=== PATIENT | male | born 1995 | race Caucasian/White ===

== ENCOUNTER 2019-04-30 16:38 | Observation (INO) ==
[2019-04-30 17:16] LABS: Hematocrit (blood only) 44.5 % (42-52); Hemoglobin 15.9 g/dL (14.0-18.0); Mean Corpuscular Hemoglobin 30.6 pg (25-34); Mean Corpuscular Hgb Conc 35.7 g/dL (32-36); Mean Corpuscular Volume 85.7 fL (80-100); Mean Platelet Volume 11.2 fL (7.4-10.4); Platelet Count 180 K/uL (130-400); RDW Coefficient of Variation 12.7 % (11.5-14.5); RDW Standard Deviation 39.8 fL (36.4-46.3); Red Blood Count 5.19 M/uL (4.7-6.1); White Blood Count 16.95 K/uL (4.8-10.8)
[2019-04-30] MEDS ORDERED: ONDANSETRON INJ 2 MG/ML 2 ML VIAL IV STA (17:20)
[2019-04-30] MEDS: fentaNYL citrate 100 MCG/2 ML VIAL IV PRN ×3 (17:29→21:00)
[2019-04-30] MEDS: SODIUM CHLORIDE 0.9% 1000ML 1,000 ML IV SCH (17:29)
[2019-04-30 17:32] LABS: BUN Creatinine Ratio 13.9 (10-20); Calcium 9.2 mg/dl (8.5-10.1); Creatinine Clr Calc Pharmacy 134.1 ml/min; Est GFR (African American) 130.1; Est GFR (Non-African American) 112.2; Potassium 3.7 mmol/L (3.5-5.1)
[2019-04-30 19:13] LABS: POC Urine Bilirubin Negative (Negative); POC Urine Blood Negative (Negative); POC Urine Glucose Normal (Normal); POC Urine Leukocytes Trace (Negative); POC Urine Nitrite Negative (Negative); POC Urine Protein Trace (Negative); POC Urine Urobilinogen Normal (Normal)
[2019-04-30 19:21] LABS: Appearance Urine Clear (Clear); Bacteria Urine Automated Negative (Negative); Bilirubin Urine Negative (Negative); Blood Urine Negative (Negative); Color Urine Yellow; Glucose Urine UA Negative (Negative); Leukocyte Esterase Urine Trace (Negative); Nitrite Urine Negative (Negative); Protein Urine Negative (Negative); RBC Urine Automated 0-4 /hpf (0-4); Specific Gravity Urine 1.014 (1.000-1.030); Urobilinogen Urine Negative (Negative)
[2019-04-30 19:23] LABS: Ketones Urine 3+ (Negative)
[2019-04-30] MEDS ORDERED: IOVERSOL 100ml IV PRN (19:56)
--- NOTE | 2019-04-30 20:09 | CT Scan Report ---
CT abd pelvis oral and IV con CLINICAL HISTORY: 24 years-old Male presenting with rlq pain, n/v. TECHNIQUE: Multidetector CT of the abdomen and pelvis was performed after the administration of oral and intravenous contrast. IV contrast: 94 mL of Optiray 320. One or more dose lowering techniques wer e used consistent with the principles of ALARA (as low as reasonably achievable), including automatic exposure control, mA or kV adjustment to individual patient size, and/or use of iterative reconstruc tion. COMPARISON: None. CT DOSE (mGy.cm): The estimated cumulative dose is 332.91 mGy.cm. FINDINGS: [employer] topogram: Unremarkable. Lung bases: Normal heart size. No pericardial or pleural effusion. No focal infiltrate or nodule at t he lung bases. Liver: Normal morphology. No liver lesion. Patent hepatic vasculature. Biliary: No intrahepatic or extrahepatic biliary ductal dilatation. Normal gallbladder. Pancreas: Normal. Spleen: Normal. Adrenal glands: Normal. Kidneys and ureters: Normal. No hydronephrosis. Bladder: Incompletely evaluated secondary to underdistention. Pelvic organs: Prostate and seminal vesicles normal. Bowel: Hyperenhancing dilated and not opacified appendix with exuberant surrounding periappendiceal f at infiltration and fluid in the right lower quadrant. No adjacent abscess. No gross mucosal disconti nuity. No bowel obstruction. Peritoneal cavity: No free fluid or intraperitoneal gas. Lymph nodes: No enlarged lymph nodes in the abdomen or pelvis. Vasculature: Aorta and IVC patent and normal in caliber. Abdominal wall: Normal. Musculoskeletal: Normal. IMPRESSION: 1. Acute appendicitis with exuberant regional inflammatory change. No abscess. No gross evidence of mucosal necrosis. Surgical consultation is necessary. The report will be called/faxed according to standard departmental protocol for a critical finding. Electronically signed by: Derrick Blanton M.D. 04/30/2019 8:07 PM
--- NOTE | 2019-04-30 21:15 | History & Physical Report ---
Date of Service April 30, 2019 Assessment & Plan (1) Acute appendicitis: This patient's history, physical findings, laboratories and CT findings are consistent with appendicitis. I reviewed the images as well as the report. I have recommended a laparoscopic appendectomy. I explained the possible need to convert to an open procedure. I explained the possible complications associated with those procedures. The patient wishes to go ahead with surgery and has signed a consent form. Present on Admission?: Yes History of Present Illness Chief Complaint: Right lower quadrant abdominal pain Primary Care Provider: NO PCP Is a 24-year-old male who presented to the emergency room with a complaint of pain that is now in the right lower quadrant. When he went to bed last night he was well. He awoke at 4 AM this morning with pain that was more like a dull ache and a cramp centered in the upper abdomen but as the day progressed it migrated to the right lower quadrant where it is presently located. It is exacerbated by motion. It went was associated with nausea and he had one episode of vomiting. His bowels have been moving without diarrhea or constipation. He denies melena and hematochezia. He is never had pain like this before. He had what he described as sweats but he did not take his temperature. He denies dysuria and hematuria Allergies Allergy/AdvReac Type Severity Reaction Status Date / Time No Known Allergies Allergy Unverified 04/30/19 17:08 Home Medications Home Medications Medication Instructions Recorded Confirmed Type No Known Home Medications 04/30/19 04/30/19 History Past Med/Surg History Medical History No pertinent past medical history Surgical History History of cranial surgery Craniosynostosis [place] teeth extracted Family History Other No pertinent family history in first degree relatives Social History Preferred Language: Martiniquais Feels Safe at Home: Yes Smoking Status: Never smoker Review of Systems Review of Systems: All systems reviewed & are unremarkable except as noted in HPI & below Physical Exam Constitutional: no acute distress Neck: trachea midline Respiratory: normal respiratory effort, lungs clear to auscultation Cardiovascular: Rate/Rhythm: regular rate and regular rhythm Gastrointestinal (Abdomen): Inspection/Auscultation: normal bowel sounds; abdomen not distended Percussion/Palpation: + abdomen tender (Right lower quadrant with some referred tenderness to the right lower quadrant from the left lower quadrant) and abdomen soft; no abdominal mass Skin: no rashes, warm and dry Lymphatic: no cervical lymphadenopathy Results & Data Vital Signs (Past 12 Hours) Vital Signs Temp Pulse Resp BP Pulse Ox 04/30/19 18:30 76 16 99 04/30/19 18:00 75 13 98 04/30/19 17:36 108 H 19 98 04/30/19 17:33 102 H 18 154/88 H 97 04/30/19 16:51 36.7 C 92 H 20 142/90 H 96 Laboratory Results 04/30/19 04/30/19 04/30/19 Range/Units Unknown Unknown 17:02 WBC (4.8-10.8) K/uL RBC (4.7-6.1) M/uL Hgb (14.0-18.0) g/dL Hct (42-52) % MCV (80-100) fL MCH (25-34) pg MCHC (32-36) g/dL RDW Std Deviation (36.4-46.3) fL RDW Coeff of Abiodun (11.5-14.5) % Plt Count (130-400) K/uL MPV (7.4-10.4) fL Sodium 139 (136-145) mmol/L Potassium 3.7 (3.5-5.1) mmol/L Chloride 103 (98-107) mmol/L Carbon Dioxide 25 (21-32) mmol/L Anion Gap 11.0 (3-11) BUN 13 (7-18) mg/dl Creatinine 0.94 (0.6-1.4) mg/dl Est Cr Clr Drug Dosing 134.1 ml/min Est GFR ( Amer) 130.1 Est GFR (Non-Af Amer) 112.2 BUN/Creatinine Ratio 13.9 (10-20) Glucose 89 (70-99) mg/dl Calcium 9.2 (8.5-10.1) mg/dl Urine Color Yellow Urine Appearance Clear (Clear) Urine pH 6.0 (4.5-7.5) POC Urine pH Pending Ur Specific [place] 1.014 (1.000-1.030) Urine Protein Negative (Negative) POC Urine Protein Trace H (Negative) Urine Glucose (UA) Negative (Negative) POC Ur Glucose (UA) Normal (Normal) Urine Ketones 3+ H (Negative) POC Urine Ketones 2+ (Moderate) H (Negative) Urine Blood Negative (Negative) POC Urine Blood Negative (Negative) Urine Nitrite Negative (Negative) POC Urine Nitrite Negative (Negative) Urine Bilirubin Negative (Negative) POC Urine Bilirubin Negative (Negative) Urine Urobilinogen Negative (Negative) POC Urine Urobilinogen Normal (Normal) Ur Leukocyte Esterase Trace H (Negative) POC U Leukocyte Esteras Trace H (Negative) Urine WBC (Auto) 10-30 H (0-5) /hpf Urine RBC (Auto) 0-4 (0-4) /hpf U Hyaline Cast (Auto) 1-5 (0-5) /lpf U Epithel Cells (Auto) 5-10 H (0-5) /lpf Urine Bacteria (Auto) Negative (Negative) 04/30/19 Range/Units 17:02 WBC 16.95 H (4.8-10.8) K/uL RBC 5.19 (4.7-6.1) M/uL Hgb 15.9 (14.0-18.0) g/dL Hct 44.5 (42-52) % MCV 85.7 (80-100) fL MCH 30.6 (25-34) pg MCHC 35.7 (32-36) g/dL RDW Std Deviation 39.8 (36.4-46.3) fL RDW Coeff of Abiodun 12.7 (11.5-14.5) % Plt Count 180 (130-400) K/uL MPV 11.2 H (7.4-10.4) fL Sodium (136-145) mmol/L Potassium (3.5-5.1) mmol/L Chloride (98-107) mmol/L Carbon Dioxide (21-32) mmol/L Anion Gap (3-11) BUN (7-18) mg/dl Creatinine (0.6-1.4) mg/dl Est Cr Clr Drug Dosing ml/min Est GFR ( Amer) Est GFR (Non-Af Amer) BUN/Creatinine Ratio (10-20) Glucose (70-99) mg/dl Calcium (8.5-10.1) mg/dl Urine Color Urine Appearance (Clear) Urine pH (4.5-7.5) POC Urine pH Ur Specific [place] (1.000-1.030) Urine Protein (Negative) POC Urine Protein (Negative) Urine Glucose (UA) (Negative) POC Ur Glucose (UA) (Normal) Urine Ketones (Negative) POC Urine Ketones (Negative) Urine Blood (Negative) POC Urine Blood (Negative) Urine Nitrite (Negative) POC Urine Nitrite (Negative) Urine Bilirubin (Negative) POC Urine Bilirubin (Negative) Urine Urobilinogen (Negative) POC Urine Urobilinogen (Normal) Ur Leukocyte Esterase (Negative) POC U Leukocyte Esteras (Negative) Urine WBC (Auto) (0-5) /hpf Urine RBC (Auto) (0-4) /hpf U Hyaline Cast (Auto) (0-5) /lpf U Epithel Cells (Auto) (0-5) /lpf Urine Bacteria (Auto) (Negative) Diagnostic Findings CT abd pelvis oral and IV con CLINICAL HISTORY: 24 years-old Male presenting with rlq pain, n/v. TECHNIQUE: Multidetector CT of the abdomen and pelvis was performed after the administration of oral and intravenous contrast. IV contrast: 94 mL of Optiray 320. One or more dose lowering techniques were used consistent with the principles of ALARA (as low as reasonably achievable), including automatic exposure control, mA or kV adjustment to individual patient size, and/or use of iterative reconstruction. COMPARISON: None. CT DOSE (mGy.cm): The estimated cumulative dose is 332.91 mGy.cm. FINDINGS: [employer] topogram: Unremarkable. Lung bases: Normal heart size. No pericardial or pleural effusion. No focal infiltrate or nodule at the lung bases. Liver: Normal morphology. No liver lesion. Patent hepatic vasculature. Biliary: No intrahepatic or extrahepatic biliary ductal dilatation. Normal gallbladder. Pancreas: Normal. Spleen: Normal. Adrenal glands: Normal. Kidneys and ureters: Normal. No hydronephrosis. Bladder: Incompletely evaluated secondary to underdistention. Pelvic organs: Prostate and seminal vesicles normal. Bowel: Hyperenhancing dilated and not opacified appendix with exuberant surrounding periappendiceal fat infiltration and fluid in the right lower quadrant. No adjacent abscess. No gross mucosal discontinuity. No bowel obstruction. Peritoneal cavity: No free fluid or intraperitoneal gas. Lymph nodes: No enlarged lymph nodes in the abdomen or pelvis. Vasculature: Aorta and IVC patent and normal in caliber. Abdominal wall: Normal. Musculoskeletal: Normal. IMPRESSION: 1. Acute appendicitis with exuberant regional inflammatory change. No abscess. No gross evidence of mucosal necrosis. Surgical consultation is necessary. The report will be called/faxed according to standard departmental protocol for a critical finding. (1) Acute appendicitis Acute appendicitis type: unspecified acute appendicitis type Qualified Code(s): K35.80 - Unspecified acute appendicitis
[2019-04-30] MEDS ORDERED: CEFAZOLIN 250 MG/ML 1 GM VIAL ONE (21:48)
[2019-04-30] MEDS ORDERED: BUPIVACAINE 0.5 % 5 MG/1 ML MPF 30ML VIAL ONE (21:48)
[2019-04-30] MEDS ORDERED: MIDAZOLAM HCL 1 MG/ML 2ML VIAL ONE (21:48)
[2019-04-30] MEDS ORDERED: fentaNYL citrate 100 MCG/2 ML VIAL ONE ×2 (21:48→23:07)
[2019-04-30] MEDS ORDERED: HEPARIN (PORCINE) 1000 UNIT/ML 10 ML (CATH LAB USE ONLY) ONE (21:48)
--- NOTE | 2019-04-30 21:54 | Anesthesiology Consultation ---
Date of Service April 30, 2019 Assessment & Plan (1) Encounter for pre-operative examination: Chart Review Chart Review: Acceptable Risk for Surgery History Surgery Operation Date: 04/30/19 22:15 Proposed Procedures p Laparoscopic Appendectomy - Pelon Schmitt MD Height/Weight Height: 6 ft 1 in Weight: 78.9 kg Allergies Allergy/AdvReac Type Severity Reaction Status Date / Time No Known Allergies Allergy Unverified 04/30/19 17:08 Medications Home Medications Medication Instructions Recorded Confirmed Last Taken No Known Home Medications 04/30/19 04/30/19 Unknown Active Medications Generic Name Dose Route Start Last Admin Trade Name Freq PRN Reason Stop Dose Admin Fentanyl Citrate 50 mcg 04/30/19 17:20 04/30/19 21:00 Fentanyl Citrate IV 05/14/19 17:19 50 mcg Q15M PRN Administration Pain Sodium Chloride 1,000 mls @ 125 mls/hr 04/30/19 17:30 04/30/19 17:29 Nss 1000ml IV 05/30/19 17:29 125 mls/hr .Q8H RAUDEL Administration Ioversol 94 ml 04/30/19 19:56 04/30/19 19:56 Optiray 320 100ml IV 05/04/19 19:55 94 ml ONCE PRN Administration Interaction Checking Past Medical History Medical History No pertinent past medical history Past Family History Family History Other No pertinent family history in first degree relatives Past Surgical History Surgical History History of cranial surgery Craniosynostosis [place] teeth extracted Social History Smoking Status: Never smoker Physical Exam Vital Signs Last Vital Signs Temp 36.7 C 04/30/19 16:51 Pulse 76 04/30/19 18:30 Resp 16 04/30/19 18:30 BP 154/88 H 04/30/19 17:33 Pulse Ox 99 04/30/19 18:30 Testing Laboratory Results 04/30/19 17:02 04/30/19 17:02 Urine Color Yellow 04/30/19 Unknown Urine Appearance Clear (Clear) 04/30/19 Unknown Urine pH 6.0 (4.5-7.5) 04/30/19 Unknown Ur Specific [place] 1.014 (1.000-1.030) 04/30/19 Unknown Urine Protein Negative (Negative) 04/30/19 Unknown Urine Glucose (UA) Negative (Negative) 04/30/19 Unknown Urine Ketones 3+ (Negative) H 04/30/19 Unknown Urine Nitrite Negative (Negative) 04/30/19 Unknown Ur Leukocyte Esterase Trace (Negative) H 04/30/19 Unknown Urine WBC (Auto) 10-30 /hpf (0-5) H 04/30/19 Unknown Urine RBC (Auto) 0-4 /hpf (0-4) 04/30/19 Unknown U Hyaline Cast (Auto) 1-5 /lpf (0-5) 04/30/19 Unknown U Epithel Cells (Auto) 5-10 /lpf (0-5) H 04/30/19 Unknown Urine Bacteria (Auto) Negative (Negative) 04/30/19 Unknown
[2019-04-30] MEDS ORDERED: KETOROLAC 30 MG/ML VIAL IV PRN (22:20)
[2019-04-30] MEDS ORDERED: ATROPINE SULFATE 0.1 MG/ML 10ML SYR IV PRN (22:20)
[2019-04-30] MEDS ORDERED: ONDANSETRON INJ 2 MG/ML 2 ML VIAL IV PRN (22:20)
[2019-04-30] MEDS ORDERED: HYDROmorphone INJ 1 MG/ML SYRINGE IV PRN (22:20)
[2019-04-30] MEDS ORDERED: PROPOFOL IV EMULSION 10 MG/ML 20 ML VIAL IV ONE (22:53)
[2019-04-30] MEDS ORDERED: LIDOCAINE HCL 2% 2 ML VIAL/AMP(20MG/ML) INFIL ONE (22:53)
[2019-04-30] MEDS ORDERED: ONDANSETRON INJ 2 MG/ML 2 ML VIAL ONE (22:55)
[2019-04-30] MEDS ORDERED: METOCLOPRAMIDE HCL INJ 5 MG/ML 2 ML VIAL ONE (22:55)
[2019-04-30] MEDS ORDERED: SUCCINYLCHOLINE 100MG/5ML SYR ONE (22:55)
[2019-04-30] MEDS ORDERED: ROCURONIUM BROMIDE 10 MG/ML 5 ML VIAL ONE (22:55)
[2019-04-30] MEDS ORDERED: NEOSTIGMINE METHYLSULFATE 5 MG/5 ML SYR ONE (23:04)
[2019-04-30] MEDS ORDERED: GLYCOPYRROLATE 0.2 MG/ML VIAL ONE (23:04)
--- NOTE | 2019-04-30 23:40 | Post Operative Brief Note ---
Immediate Post Op Note v1 Date of Surgery April 30, 2019 Pre & Post Diagnosis Operation Date: 04/30/19 22:15 Pre-Op Diagnosis: acute appendicitis Post-Op Diagnosis: acute appendicitis Procedure Operation Date: 04/30/19 22:15 Actual Procedures p Laparoscopic Appendectomy(Not Applicable) - Pelon Schmitt MD Surgeon Pelon Schmitt MD Egg Smeller None Estimated Blood Loss 5 Findings Consistent with Post-Op Diagnosis Specimens Appendix Drains Rojo Catheter (16 latvian 10ml balloon; patent, clean, dry, intact) Complications none
[2019-04-30] MEDS ORDERED: LABETALOL HCL IV 5 MG/ML 20ML IV PRN (23:41)
[2019-04-30] MEDS ORDERED: MEPERIDINE HCL 25 MG/ML CARP IV PRN (23:42)
[2019-04-30] MEDS ORDERED: MEPERIDINE HCL 25 MG/ML CARP ONE (23:54)
--- NOTE | 2019-04-30 23:55 | Emergency Department Note ---
Entered by Faviola Dutta acting as a scribe for Therese Jerome DO History of Present Illness General Chief complaint: Flank Pain Stated complaint: FLANK PAIN Time Seen by Provider: 04/30/19 17:05 Source: patient History of Present Illness Provider complaint: Abdominal Pain Onset (ago): day(s) 1 Location: abdomen (Upper) Radiation: abdomen (Lower) Maximum Pain Intensity: 7 Exacerbated By: + movement Associated symptoms: + denies other symptoms (Reflux), + fever/chills, + nausea/vomiting and + other (Hot flashes, no bowel movements today) The patient is a 24 year old male who presents to the Emergency Room with complaints of abdominal pain that began early this morning. The patient states the pain began in his upper abdomen and then moved to his lower abdomen and is exacerbated by standing up straight or laying flat. He states the pain is worse in the right lower abdomen. No prior history of similar pain. The patient reports experiencing hot flashes and possible fever/chills. Additionally, the patient states he had normal bowel movements yesterday but has not had a bowel movement today. Patient states he was nauseated muscle today and vomited once. Decreased appetite. The patient denies any reflux or recent travel. No recent dietary changes. No recent trauma. Patient denies any prior abdominal surgery. Home Medications Home Medications Medication Instructions Recorded Confirmed Type No Known Home Medications 04/30/19 04/30/19 History Allergies Allergy/AdvReac Type Severity Reaction Status Date / Time No Known Allergies Allergy Unverified 04/30/19 17:08 Past Med/Surg History Medical History No pertinent past medical history Surgical History History of cranial surgery Craniosynostosis Anderson teeth extracted Family History Other No pertinent family history in first degree relatives Social History Preferred Language: Iraqi Feels Safe at Home: Yes Smoking Status: Never smoker Review of Systems See HPI for pertinent positives & negatives. and A total of 10 systems reviewed and were otherwise negative Physical Exam Vital Signs Vital Signs - 24 hr 04/30/19 16:51 04/30/19 17:33 04/30/19 17:36 Temperature 36.7 C Temperature Source Oral Sepsis Recent Fever Within 48 Hours No Sepsis New/Unexplained Change in Mental Status No Sepsis Action Taken by Nursing No Action Required Pulse Rate 92 H 102 H 108 H Pulse Rate from SpO2 Sensor 100 H 102 H Pulse Rhythm Regular Pulse Strength Normal Respiratory Rate 20 18 19 Respiratory Effort / Characteristics Non-Labored Spontaneous Respiratory Depth Normal Respiratory Pattern Regular Blood Pressure 142/90 H 154/88 H Blood Pressure Mean 107 110 Blood Pressure Position Sitting Pulse Oximetry 96 97 98 Oxygen Delivery Method Room Air 04/30/19 18:00 04/30/19 18:30 Temperature Temperature Source Sepsis Recent Fever Within 48 Hours Sepsis New/Unexplained Change in Mental Status Sepsis Action Taken by Nursing Pulse Rate 75 76 Pulse Rate from SpO2 Sensor 81 75 Pulse Rhythm Pulse Strength Respiratory Rate 13 16 Respiratory Effort / Characteristics Respiratory Depth Respiratory Pattern Blood Pressure Blood Pressure Mean Blood Pressure Position Pulse Oximetry 98 99 Oxygen Delivery Method GENERAL: alert, well appearing, well nourished, no distress, non-toxic EYE EXAM: normal conjunctiva, PERRL and EOM's grossly intact OROPHARYNX: no exudate, no erythema, lips, buccal mucosa, and tongue normal and mucous membranes are moist NECK: supple, no nuchal rigidity, no adenopathy, non-tender LUNGS: Clear to auscultation. Normal chest wall mechanics, no w/r/r HEART: no murmurs, S1 normal and S2 normal ABDOMEN: abdomen soft, non-tender, normo-active bowel sounds, no masses, no rebound tenderness or guarding. Mcburney's Point Tenderness. Positive psoas and obturator. BACK: Back is symmetrical on inspection and there is no deformity, no midline tenderness, no CVA tenderness. SKIN: no rashes and no bruising UPPER EXTREMITIES: upper extremities are grossly normal. FROM, nml pulses b/l. LOWER EXTREMITIES: No pitting edema. FROM, nml pulses b/l. NEURO EXAM: Normal sensorium, cranial nerves II-XII grossly intact, normal speech, no gross weakness of arms, no gross weakness of legs. Course 1710: Past medical records reviewed. The patient was evaluated in room B09. A complete history and physical exam was performed. 2009: I reevaluated and discussed the test results with the patient. The patient is resting comfortably. 2015: I spoke with Dr. Schmitt- General Surgery about the patient's case and he will accept the patient for further evaluation. Administered Medications Fentanyl Citrate (Fentanyl Citrate) 50 mcg IV Q15M PRN PRN Reason: Pain Stop: 05/14/19 17:19 Last Admin: 04/30/19 21:00 Dose: 50 mcg Documented by: [id number] Admin: 04/30/19 19:07 Dose: 50 mcg Documented by: [id number] Admin: 04/30/19 17:29 Dose: 50 mcg Documented by: [id number] Sodium Chloride (Nss 1000ml) 1,000 mls @ 125 mls/hr IV .Q8H RAUDEL Stop: 05/30/19 17:29 Last Admin: 04/30/19 17:29 Dose: 125 mls/hr Documented by: [id number] Ioversol (Optiray 320 100ml) 94 ml IV ONCE PRN PRN Reason: Interaction Checking Stop: 05/04/19 19:55 Last Admin: 04/30/19 19:56 Dose: 94 ml Documented by: [id number] Discontinued Medications Bupivacaine HCl (Marcaine 0.5% Mpf) Confirm Administered Dose 30 ml .ROUTE .STK- MED ONE Stop: 04/30/19 21:49 Last Admin: 04/30/19 23:01 Dose: 30 ml Documented by: [id number] Cefazolin Sodium (Ancef) Confirm Administered Dose 1,000 mg .ROUTE .STK-MED ONE Stop: 04/30/19 21:49 Last Admin: 04/30/19 22:58 Dose: 1,000 mg Documented by: [id number] Heparin Sodium (Porcine) (Heparin Iv Bolus (Alarm Adjuster Use Only)) Confirm Administered Dose 10,000 units .ROUTE .STK-MED ONE Stop: 04/30/19 21:49 Last Admin: 04/30/19 22:58 Dose: 5,000 units Documented by: [id number] Ondansetron HCl (Zofran) 4 mg IV NOW STA Stop: 04/30/19 17:21 Last Admin: 04/30/19 17:29 Dose: 4 mg Documented by: [id number] Medical Decision Making Differential Diagnosis Differential diagnosis: Etiologies such as biliary colic, cholecystitis, hepatitis, pancreatitis, cardiac disease, pancreatitis, gastritis, peptic ulcer disease, appendicitis, cystitis, diverticulitis, mesenteric ischemia, inflammatory bowel disease, ileus, bowel obstruction, testicular torsion, aortic pathology, shingles, as well as others were considered. Medical Records Attestation: I reviewed the patient's medical records. Home Medications Current Medication List: was personally reviewed by me Laboratory Data Attestation: I reviewed the patient's lab results. Result diagrams: 04/30/19 17:02 04/30/19 17:02 Lab Results 04/30/19 04/30/19 04/30/19 Range/Units 17:02 17:02 Unknown WBC 16.95 H (4.8-10.8) K/uL RBC 5.19 (4.7-6.1) M/uL Hgb 15.9 (14.0-18.0) g/dL Hct 44.5 (42-52) % MCV 85.7 (80-100) fL MCH 30.6 (25-34) pg MCHC 35.7 (32-36) g/dL RDW Std Deviation 39.8 (36.4-46.3) fL RDW Coeff of Abiodun 12.7 (11.5-14.5) % Plt Count 180 (130-400) K/uL MPV 11.2 H (7.4-10.4) fL Sodium 139 (136-145) mmol/L Potassium 3.7 (3.5-5.1) mmol/L Chloride 103 (98-107) mmol/L Carbon Dioxide 25 (21-32) mmol/L Anion Gap 11.0 (3-11) BUN 13 (7-18) mg/dl Creatinine 0.94 (0.6-1.4) mg/dl Est Cr Clr Drug Dosing 134.1 ml/min Est GFR ( Amer) 130.1 Est GFR (Non-Af Amer) 112.2 BUN/Creatinine Ratio 13.9 (10-20) Glucose 89 (70-99) mg/dl Calcium 9.2 (8.5-10.1) mg/dl Urine Color Urine Appearance (Clear) Urine pH (4.5-7.5) Ur Specific [place] (1.000-1.030) Urine Protein (Negative) POC Urine Protein Trace H (Negative) Urine Glucose (UA) (Negative) POC Ur Glucose (UA) Normal (Normal) Urine Ketones (Negative) POC Urine Ketones 2+ (Moderate) H (Negative) Urine Blood (Negative) POC Urine Blood Negative (Negative) Urine Nitrite (Negative) POC Urine Nitrite Negative (Negative) Urine Bilirubin (Negative) POC Urine Bilirubin Negative (Negative) Urine Urobilinogen (Negative) POC Urine Urobilinogen Normal (Normal) Ur Leukocyte Esterase (Negative) POC U Leukocyte Esteras Trace H (Negative) Urine WBC (Auto) (0-5) /hpf Urine RBC (Auto) (0-4) /hpf U Hyaline Cast (Auto) (0-5) /lpf U Epithel Cells (Auto) (0-5) /lpf Urine Bacteria (Auto) (Negative) 04/30/19 Range/Units Unknown WBC (4.8-10.8) K/uL RBC (4.7-6.1) M/uL Hgb (14.0-18.0) g/dL Hct (42-52) % MCV (80-100) fL MCH (25-34) pg MCHC (32-36) g/dL RDW Std Deviation (36.4-46.3) fL RDW Coeff of Abiodun (11.5-14.5) % Plt Count (130-400) K/uL MPV (7.4-10.4) fL Sodium (136-145) mmol/L Potassium (3.5-5.1) mmol/L Chloride (98-107) mmol/L Carbon Dioxide (21-32) mmol/L Anion Gap (3-11) BUN (7-18) mg/dl Creatinine (0.6-1.4) mg/dl Est Cr Clr Drug Dosing ml/min Est GFR ( Amer) Est GFR (Non-Af Amer) BUN/Creatinine Ratio (10-20) Glucose (70-99) mg/dl Calcium (8.5-10.1) mg/dl Urine Color Yellow Urine Appearance Clear (Clear) Urine pH 6.0 (4.5-7.5) Ur Specific [place] 1.014 (1.000-1.030) Urine Protein Negative (Negative) POC Urine Protein (Negative) Urine Glucose (UA) Negative (Negative) POC Ur Glucose (UA) (Normal) Urine Ketones 3+ H (Negative) POC Urine Ketones (Negative) Urine Blood Negative (Negative) POC Urine Blood (Negative) Urine Nitrite Negative (Negative) POC Urine Nitrite (Negative) Urine Bilirubin Negative (Negative) POC Urine Bilirubin (Negative) Urine Urobilinogen Negative (Negative) POC Urine Urobilinogen (Normal) Ur Leukocyte Esterase Trace H (Negative) POC U Leukocyte Esteras (Negative) Urine WBC (Auto) 10-30 H (0-5) /hpf Urine RBC (Auto) 0-4 (0-4) /hpf U Hyaline Cast (Auto) 1-5 (0-5) /lpf U Epithel Cells (Auto) 5-10 H (0-5) /lpf Urine Bacteria (Auto) Negative (Negative) Imaging Data Radiologist's Impression: Radiology results as stated below per my review and the radiologist's interpretation: CT abd pelvis oral and IV con CLINICAL HISTORY: 24 years-old Male presenting with rlq pain, n/v. TECHNIQUE: Multidetector CT of the abdomen and pelvis was performed after the administration of oral and intravenous contrast. IV contrast: 94 mL of Optiray 320. One or more dose lowering techniques were used consistent with the principles of ALARA (as low as reasonably achievable), including automatic exposure control, mA or kV adjustment to individual patient size, and/or use of iterative reconstruction. COMPARISON: None. CT DOSE (mGy.cm): The estimated cumulative dose is 332.91 mGy.cm. FINDINGS: Medical Accounting Clerk topogram: Unremarkable. Lung bases: Normal heart size. No pericardial or pleural effusion. No focal infiltrate or nodule at the lung bases. Liver: Normal morphology. No liver lesion. Patent hepatic vasculature. Biliary: No intrahepatic or extrahepatic biliary ductal dilatation. Normal gallbladder. Pancreas: Normal. Spleen: Normal. Adrenal glands: Normal. Kidneys and ureters: Normal. No hydronephrosis. Bladder: Incompletely evaluated secondary to underdistention. Pelvic organs: Prostate and seminal vesicles normal. Bowel: Hyperenhancing dilated and not opacified appendix with exuberant surrounding periappendiceal fat infiltration and fluid in the right lower quadrant. No adjacent abscess. No gross mucosal discontinuity. No bowel obstruction. Peritoneal cavity: No free fluid or intraperitoneal gas. Lymph nodes: No enlarged lymph nodes in the abdomen or pelvis. Vasculature: Aorta and IVC patent and normal in caliber. Abdominal wall: Normal. Musculoskeletal: Normal. IMPRESSION: 1. Acute appendicitis with exuberant regional inflammatory change. No abscess. No gross evidence of mucosal necrosis. Surgical consultation is necessary. The report will be called/faxed according to standard departmental protocol for a critical finding. Electronically signed by: Derrick Blanton M.D. 04/30/2019 8:07 PM Blood Pressure Blood Pressure Findings: Elevated blood pressure Blood Pressure Disposition: further management by hospitalist RAMON Narrative Patient here well-appearing however had concerning story for evolving acute appe ndicitis. Patient's labs reassuring with exception of leukocytosis. Patient hemodynamically stable. CT the abdomen pelvis confirmed finding of acute appendicitis, no evidence of abscess or perforation. Case discussed with general surgeon on-call Dr. Schmitt for additional evaluation. Patient hydrated here, kept n.p.o., and had medication ordered for pain as needed. Patient was made aware of all results and was in agreement with plan. Impression & Plan Acute appendicitis, Abdominal pain Discharge Plan Visit Data *Final* Discharge Date/Time: 04/30/19 22:01 Chief Complaint: Flank Pain Stated Complaint: FLANK PAIN ED Provider: Therese Jerome Discharge Problem: Acute appendicitis, Abdominal pain Patient Disposition: Admitted As Inpatient Discharge Instructions Interventions: ED Discharge Assessment Last Done: 04/30/19 22:01 Discharge Problem: Acute appendicitis Qualifiers: Acute appendicitis type: unspecified acute appendicitis type Qualified Code(s): K35.80 - Unspecified acute appendicitis Abdominal pain Qualifiers: Abdominal location: unspecified location Qualified Code(s): R10.9 - Unspecified abdominal pain The scribe's documentation has been prepared under my direction and personally reviewed by me in its entirety. I confirm that the note above accurately reflects all work, treatment, procedures, and medical decision making performed by me.
--- NOTE | 2019-05-01 00:06 | Anesthesiology Progress Note ---
Date of Service May 01, 2019 Anesthesia Post Procedure Vital Signs Vital Signs: Temp Pulse Pulse Resp BP BP Pulse Ox 04/30/19 23:55 80 20 150/88 H 95 04/30/19 23:45 36.5 C 94 H 20 146/89 H 95 04/30/19 18:30 76 16 99 04/30/19 18:00 75 13 98 04/30/19 17:36 108 H 19 98 04/30/19 17:33 102 H 18 154/88 H 97 04/30/19 16:51 36.7 C 92 H 20 142/90 H 96 Pain Intensity Right Lower Abdomen: Pain Intensity: 3 Transfer of Care Handoff Completed per policy Notes Mental Status: alert / awake / arousable Patient Amnestic to Procedure: Yes Nausea / Vomiting: adequately controlled Pain: adequately controlled Airway Patency, RR, SpO2: stable & adequate BP & HR: stable & adequate Hydration State: stable & adequate Anesthetic Complications: no major complications apparent
--- NOTE | 2019-05-01 00:11 | Operative Report ---
DATE OF OPERATION: 04/30/2019 PREOPERATIVE DIAGNOSIS: Appendicitis. POSTOPERATIVE DIAGNOSIS: Appendicitis. PROCEDURE: Laparoscopic appendectomy. SURGEON: Pelon Schmitt MD. FINDINGS: The distal 3/4 of the appendix was firm, hyperemic and dilated. The base of the appendix and the cecum at the base of the appendix were normal. There was no evidence of perforation or abscess. TECHNIQUE: The patient was given a general anesthetic and the area was prepped and draped in the usual sterile fashion. Transverse incision was made below the umbilicus, carried down through the subcutaneous tissue to the fascia which was grasped with 2 Kadie clamps and incised between. The peritoneum was identified, incised and introducer was placed bluntly. The abdomen was then insufflated to a pressure of 15 mmHg with carbon dioxide. The lower midline introducer was placed under direct vision. Traction was placed superiorly on the cecum and medially and the appendix was seen lying lateral to the cecum. The patient was placed in Trendelenburg airplane left position and the left lower quadrant introducer was placed under direct vision. The appendix and the mesoappendix were densely adherent to the lateral abdominal wall. There was a plane that was visible; however, I opened the peritoneum and dissected working from medial to lateral. I then worked on the superior side and was able to free the tip of the appendix using blunt cautery dissection where appropriate. There were attachments of the mesoappendix that were divided bluntly as well which allowed me to elevate the appendix and the mesoappendix. I was then able to create a plane between the base of the appendix and the mesoappendix and then divided the mesoappendix with firing of the Endo-YEISON stapler. There was a small amount of oozing from that staple line that was easily controlled with cautery. I had all of the mesoappendix dissected away and confirmed the base of the appendix. The appendix was then amputated using the Endo-YEISON stapler. The appendix was placed into an Endobag and brought out through the left lower quadrant introducer site. That introducer was replaced and the right lower quadrant was irrigated. Irrigation was removed. There was 1 other area of oozing from the area of dissection that was easily controlled with cautery. The right lower quadrant was irrigated and irrigation removed. Any irrigation that entered the right upper quadrant where the pelvis was removed. The staple lines were again inspected and there was no bleeding. Gas was allowed to escape and introducers were removed. The fascia of the umbilical and left lower quadrant introducer sites was closed with interrupted 0 Vicryl and skin of all the incisions was closed with 4-0 Monocryl in either an interrupted or running subcuticular fashion. The skin was anesthetized with 0.5% Marcaine. The skin was cleansed, dried, benzoin placed, Steri-Strips applied. Estimated blood loss was 5 mL. Sponge, needle and instrument counts were correct prior to closure. The patient tolerated the surgical procedure without complication and was transferred to recovery. I attest to the content of the Intraoperative Record and any orders documented therein. Any exception s are noted below.
[2019-05-01] MEDS ORDERED: MoRPHine SULFATE 4 MG/ML 1 ML CARP\\VIAL IV PRN (01:21)
[2019-05-01] MEDS: SODIUM CHLORIDE 0.9% 1000ML 1,000 ML IV SCH ×2 (01:41→10:21)
[2019-05-01] MEDS: OXYCODONE/ACETAMINOPHEN 5mg/325mg TAB PO PRN ×3 (01:42→14:28)
--- NOTE | 2019-05-01 17:47 | Surgery Progress Note ---
Date of Service May 01, 2019 Assessment & Plan (1) Acute appendicitis: POD # 0 s/p laparoscopic appendectomy -vitals stable, post op pain controlled, preop pain resolved, afebrile - tolerating regular diet - adequate UO Plan: Discharge home discharge instructions reviewed rx for PO Percocet prn pain f/u surgical office in [address] Montgomery has seen and examined pt, agrees with above Subjective feeling good, incisional pain, preop pain resolved tolerated diet, no n/v passing flatus Physical Exam Constitutional: WD/WN, vitals as above not ill appearing Gastrointestinal (Abdomen): Inspection/Auscultation: abdomen not distended Percussion/Palpation: + abdomen tender (at incision sites) and abdomen soft; no guarding and abdomen not rigid Skin: no rashes, warm and dry + incision (clean dry intact with steri strips present) Psychiatric: A+Ox3, euthymic affect Results & Data Vital Signs (Past 12 Hours) Vital Signs Temp Pulse Resp BP BP Pulse Ox 05/01/19 15:46 36.9 C 69 16 124/77 96 05/01/19 12:26 36.9 C 74 16 116/68 97 05/01/19 07:19 36.8 C 75 16 117/60 96 (1) Acute appendicitis Acute appendicitis type: unspecified acute appendicitis type Qualified Code(s): K35.80 - Unspecified acute appendicitis
--- NOTE | 2019-05-03 15:25 | Discharge Summary ---
Date of Service May 03, 2019 Admission HPI Per Admitting Provider Is a 24-year-old male who presented to the emergency room with a complaint of pain that is now in the right lower quadrant. When he went to bed last night he was well. He awoke at 4 AM this morning with pain that was more like a dull ache and a cramp centered in the upper abdomen but as the day progressed it migrated to the right lower quadrant where it is presently located. It is exacerbated by motion. It went was associated with nausea and he had one episode of vomiting. His bowels have been moving without diarrhea or constipation. He denies melena and hematochezia. He is never had pain like this before. He had what he described as sweats but he did not take his temperature. He denies dysuria and hematuria Principal Diagnosis acute appendicitis Discharge Data Allergies Allergy/AdvReac Type Severity Reaction Status Date / Time No Known Allergies Allergy Unverified 04/30/19 17:08 Consultations 04/30/19 21:20 ED Decision to Admit Stat Procedures Performed Operation Date: 04/30/19 22:15 Actual Procedures p Laparoscopic Appendectomy(Not Applicable) - Pelon Schmitt MD Ordered Studies 04/30/19 17:20 CT abd pelvis oral and IV con Stat Hospital Course (1) Acute appendicitis: Patient was taken to operating room from emergency department for laparoscopic appendectomy. Patient was found to have acute appendicitis without perforation or abscess. Patient tolerated procedure well and was transferred to recovery and then to medical/surgical floor for postoperative care. diet was advanced to regular diet, Po Percocet prn pain, IV Zofran prn nausea, activity as tolerated. Patient was evaluated in the morning on POD # 0, vitals stable, afebrile, preop pain resolved, post op pain controlled, no n/v, tolerating diet. Patient was discharged home on POD # 0 in stable condition. Total Time Total Time Spent Total Time Spent (In Minutes): 15 Total Time Includes: Examination of the Patient, Discharge Planning and Medication Reconciliation Discharge Plan Discharge Items Patient Disposition: Home - Self-Care Reason For Visit: ACUTE APPENDICITIS Discharge Diagnosis: Acute appendicitis Activity: Per Instructions section Non-emergency contact: Surgeon Call non-emergency contact if: your symptoms worsen, your pain is not controlled, your pain is worsening, your pain is unusual for you, your pain is concerning for you, you have a fever, your temperature is above 101, your wound has increased redness, your wound has increased drainage and your wound pain has increased Follow-up/Referrals: PCP,NO [Primary Care Provider] - Diet: Regular Addtl Attending Provider Instructions: Post-Surgical ~Discharge Instructions Activity Recommendations: - lifting limitation: (10 pounds for 2 weeks), - exercise/sex/sports limit: (nonstrenuous for 2 weeks), - driving or machine use limit: (none for 1 week), - Shower/bathe limit: (may shower beginning tomorrow) Diet: - Resume previous diet SPECIAL CARE INSTRUCTIONS: - May shower in 24 hours. Let water run over area and pat dry. - Leave steri strips on for one week. - Call the surgeon's office with any questions or concerns - - (ex. temperature higher than 101 degrees F, excessive bleeding or pain). MEDICATIONS: - Resume previous medications unless instructed otherwise by your surgeon. - Ibuprofen 600 mg every 6 hours with food - Percocet 1 every 4 hours, as needed for pain FOLLOW UP VISIT: - If not already scheduled, please call the office to schedule a two week follow-up appointment. Office number Pending Studies at Discharge: Yes (Appendix pathology, will be reviewed at follow up visit) Stand-Alone Forms: My [facility], Opioid Pain Management Medications and DC Order Prescriptions: New oxycodone-acetaminophen 5-325 mg tablet 1 tab PO Q4H PRN (Reason: pain) Qty: 10 RF: 0 No Action No Known Home Medications RF: 0 Discharge Orders: Discharge Order (Routine); Ordered 05/01/19 Ordered By: Carmen Fernandez/Other Patient Handouts: Appendectomy, Appendicitis, Appendectomy Laparoscopic Dc Admission Data Admit Date/Time: 05/01/19 00:53 Attending Provider: Pelon Schmitt Admit Provider: Pelon Schmitt Primary Care Provider: PCP,NO Other Providers: Pelon Schmitt Other Interventions: Discharge Summary Assessment (RN) Last Done: 05/01/19 18:25 DC Date/Time DO NOT enter until pt leaves facility: 05/01/19 18:57
== END 2019-05-01 18:57 | disposition home or self-care (01) ==
LOC: ED 16:38 → OR 22:01 → 3N 22:01
DX: K35.80 Unspecified acute appendicitis